=== PATIENT | female | born 1980 | race Caucasian/White ===

== ENCOUNTER 2017-04-19 22:50 | Emergency (ER) | payer OTHER ==
--- NOTE | 2017-04-19 22:59 | ED Physician Documentation ---
Headache - HPI Chief Complaint: Headache Onset: days ago (3 days) Timing: abrupt Exposure To: none Severity: moderate Quality: similar to previous Associated Symptoms: fever (?), sensitivity to light, nausea, vomiting, neck pain (muscle spasms, bearing down makes it worse). denies: chills, sweating Exacerbated By: light, noise - ROS NEURO/PSYCH: denies: confusion EYES/ENT: denies: difficulty swallowing, sinus pain, drainage GI/: denies: abdominal pain, diarrhea - PAST HX Medical History: no pertinent history, migraines Surgical History: other (c section) Allergies/Adverse Reactions: Allergies Allergy/AdvReac Type Severity Reaction Status Date / Time naproxen Allergy Intermediate Verified 04/19/17 23:05 doxycycline Allergy Verified 04/19/17 23:05 Home Medications: Ambulatory Orders Medication Instructions Recorded NK [NK] 04/19/17 - SOCIAL HX Smoking History: less than 1 pack/day Alcohol Use: rarely Drug Use: marijuana - Family HX Family History: none - VITAL SIGNS Vital Signs: Vital Signs Temp Pulse Resp BP Pulse Ox 143/76 02/29/16 10:48 - REVIEWED ASSESSMENTS Nursing Assessment Reviewed: Yes Vitals Reviewed: Yes Headache Physical Exam - EXAM General Appearance: alert, mild distress EENT: no facial swelling, eyes nml inspection Neck: supple, other (tender over pericervical muscle on the right) Respiratory: no resp distress, chest non-tender, breath sounds normal. No: wheezes, rales, rhonchi CVS: reg. rate & rhythm, heart sounds nml, murmur Abdomen: non-tender, no organomegaly, nml bowel sounds, no distention Skin: color nml Extremitites: No: non-tender - NEURO/PSYCH Higher Functions: alert, oriented x3, nml speech, mood/affect nml. denies: confused Cranial: nml as tested, no evidence of acute CVA Cerebellar: nml as tested Sensorimotor: motor nml, sensation nml Discharge Clincal Impression: Headache Referrals: Primary Doctor,No [Primary Care Provider] - 2 Days Additional Instructions: Home rest in quiet room. Follow up with your primary care provider if you continue to have headaches. Follow instruction sheet. Condition: Stable Disposition: 01 HOME, SELF-CARE Decision to Admit: NO Date of Decison to Admit: 04/19/17 Decision Time: 23:10
[2017-04-19] MEDS ORDERED: KETOROLAC TROMETHAMINE 60 MG/2 ML VIAL IM ONE (23:04)
[2017-04-19] MEDS ORDERED: ORPHENADRINE CITRATE 60 MG/2ML IM ONE (23:05)
[2017-04-19 23:49] VITALS: BP 102/61
== END 2017-04-19 23:40 | disposition home or self-care (01) ==
LOC: ED 22:50
DX: R51 Headache (principal)
CPT/HCPCS: J1885; J2360; 96372; 99283